=== PATIENT | female | born 1985 | race African-American/Black ===

== ENCOUNTER 2024-11-20 23:18 | Emergency (ER) | payer BC, MEDICAID ==
[~2024-11-20] VITALS: Ht 177.8 cm; Wt 90.9 kg
[2024-11-20 23:28] VITALS: TEMP 98.2
[2024-11-21 02:54] LABS: PLATELET COUNT (AUTO) 354 K/uL (150-450); RED BLOOD CELL COUNT(AUTO) 4.19 MIL/uL (4.00-5.20); RED CELL DISTRIBUTION WIDTH 15.2 % (11.5-14.5); WHITE BLOOD COUNT (AUTO) 4.1 K/uL (4.5-11.0)
[2024-11-21] MEDS: KETOROLAC TROMETHAMINE 30 MG/ML VIAL IM ONE (03:00)
[2024-11-21 03:08] LABS: CALCIUM, TOTAL 8.8 mg/dL (8.8-10.5); CREATININE 0.69 mg/dL (0.60-1.30); GLOMERULAR FILTR. RATE CALC > 60 mL/min (>60); GLUCOSE,RANDOM 105 mg/dL (70-110); SODIUM SERUM 138 mmol/L (136-145); UREA NITROGEN, BLOOD 4 mg/dL (7-18)
[2024-11-21] MEDS ORDERED: IPRA30SP2 NASAL (03:33)
[2024-11-21 03:51] VITALS: BP 127/89; PULSE 92; RESP 18; O2SAT 98
== END 2024-11-21 04:08 | disposition home or self-care (01) ==
LOC: EMS 23:18
DX: G43.909 Migraine, unspecified, not intractable, without status migrainosus (principal)
CPT/HCPCS: 99283; 80048; 85025; 36415; 96372; J1885